=== PATIENT | male | born 2000 | race Caucasian/White ===

== ENCOUNTER 2020-05-29 20:22 | Emergency (ER) | payer BC ==
[~2020-05-29] VITALS: Ht 177.8 cm; Wt 64.4 kg
--- NOTE | 2020-05-29 20:25 | NUR ---
PATIENT WAS MSE BY DR ENCINAS IN ROOM 04A.
[2020-05-29] MEDS ORDERED: ONDANSETRON ODT 4 MG TAB.RAPDIS SL ONE (20:30)
[2020-05-29] MEDS ORDERED: CLON2TAB11 PO (20:41)
[2020-05-29] MEDS ORDERED: NORT50CA2 PO (20:41)
[2020-05-29] MEDS ORDERED: AMPH20TA3 PO (20:41)
[2020-05-29] MEDS ORDERED: MIRT-121 PO (20:41)
[2020-05-29] MEDS ORDERED: QUET200T5 PO (20:41)
[2020-05-29] MEDS ORDERED: ONDANSETRON ODT 4 MG TAB.RAPDIS ONE (20:44)
--- NOTE | 2020-05-29 21:00 | NUR ---
DR ENCINAS AT BEDSIDE KEISHA WAS PLACED. PATIENT TOLERATED PROCEDURE.
--- NOTE | 2020-05-29 21:56 | NUR ---
PATIENT TOLERATED PO FLUIDS.
[2020-05-29 22:50] VITALS: BP 135/77
--- NOTE | 2020-05-29 22:52 | NUR ---
Patient discharged to home in stable condition. Written and verbal after care instructions given. Patient verbalized understanding of instructions. Stressed follow up or return to ER for worsening s/s. 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 Dressing on head intact no bleeding noted.
== END 2020-05-29 22:56 | disposition home or self-care (01) ==
LOC: ER 20:24
DX: S06.0X1A Concussion with loss of consciousness of 30 minutes or less, initial encounter (principal); S01.01XA Laceration without foreign body of scalp, initial encounter; R40.2411 Glasgow coma scale score 13-15, in the field [EMT or ambulance]; X58.XXXA Exposure to other specified factors, initial encounter; Y92.89 Other specified places as the place of occurrence of the external cause; Z20.828 Contact with and (suspected) exposure to other viral communicable diseases; F90.9 Attention-deficit hyperactivity disorder, unspecified type; F41.9 Anxiety disorder, unspecified; Z79.899 Other long term (current) drug therapy; Z88.8 Allergy status to other drugs, medicaments and biological substances; R00.0 Tachycardia, unspecified
CPT/HCPCS: 70450; A4217; A4663; Q0162